=== PATIENT | female | born 1980 | race Two or more races ===

== ENCOUNTER 2019-01-19 19:04 | Emergency (ER) | payer SELFPAY ==
[2019-01-19] MEDS ORDERED: MECLIZINE HCL 25 MG TABLET PO ONE (20:02)
[2019-01-19] MEDS ORDERED: ONDANSETRON HCL INJ/PF 4 MG/2 ML SDV IV ONE (20:02)
[2019-01-19] MEDS ORDERED: NORMAL SALINE 1000 ML 1,000 ML IV ONE (20:02)
--- NOTE | 2019-01-19 20:04 | ER Document Report ---
ED Medical Screen (RME) - General Chief Complaint: Congestion Stated Complaint: CONGESTION,DIZZINESS,HEADACHE Time Seen by Provider: 01/19/19 19:56 Mode of Arrival: Ambulatory Information source: Patient Notes: Patient presents complaining of cough and congestion for the past 4 days. Patient states that she has had dizziness in which she is felt like she was going to pass out and some mild shortness of breath. Patient denies any pain or chest pain symptoms. Patient does report nausea. Patient denies any vomiting or diarrhea or fever. I have greeted and performed a rapid initial assessment of this patient. A comprehensive ED assessment and evaluation of the patient, analysis of test results and completion of the medical decision making process will be conducted by additional ED providers. TRAVEL OUTSIDE OF THE [place] IN LAST 30 DAYS: No - Related Data Allergies/Adverse Reactions: Shellfish * [Shellfish] Allergy (Verified 09/14/13 13:07) Past Medical History - Immunizations Hx Diphtheria, Pertussis, Tetanus Vaccination: No Physical Exam - Vital signs Vitals: Temp Pulse Resp BP Pulse Ox 98.6 F 71 16 111/76 96 01/19/19 19:29 01/19/19 19:29 01/19/19 19:29 01/19/19 19:29 01/19/19 19:29 - Respiratory Respiratory status: No respiratory distress Breath sounds: Nonproductive cough, Wheezing Chest palpation: Normal Course - Vital Signs Vital signs: Temp Pulse Resp BP Pulse Ox 98.6 F 71 16 111/76 96 01/19/19 19:29 01/19/19 19:29 01/19/19 19:29 01/19/19 19:29 01/19/19 19:29
--- NOTE | 2019-01-19 20:54 | RADIOLOGY REPORT (SQ) ---
EXAM DESCRIPTION: XR CHEST 2 VIEWS COMPLETED DATE/TME: 01/19/2019 20:02 CLINICAL HISTORY: cough COMPARISON: None FINDINGS: Cardiac silhouette is within normal limits. There is no focal parenchymal or pleural disease. There is no acute osseous process visualized. IMPRESSION: No evidence of acute cardiopulmonary disease.
[2019-01-19 21:03] LABS: ABSOLUTE EOSINOPHILS # (AUTO) 0.1 10^3/uL (0.0-0.6); ABSOLUTE LYMPHOCYTES (AUTO) 1.1 10^3/uL (0.5-4.7); ABSOLUTE MONOCYTES (AUTO) 0.4 10^3/uL (0.1-1.4); ABSOLUTE NEUT (AUTO) 1.3 10^3/uL (1.7-8.2); BASOPHILS % (AUTO) 0.8 % (0-2); EOSINOPHILS % (AUTO) 1.9 % (0-6); HEMATOCRIT 38.3 % (36.0-47.0); HEMOGLOBIN 13.2 g/dL (12.0-15.5); MEAN CORPUSCULAR HEMOGLOBIN 29.7 pg (27.0-33.4); MEAN CORPUSCULAR HGB CONC 34.4 g/dL (32.0-36.0); MEAN CORPUSCULAR VOLUME 86 fl (80-97); MONOCYTES % (AUTO) 14.6 % (3-13); PLATELET COUNT 234 10^3/uL (150-450); RED BLOOD COUNT 4.44 10^6/uL (3.72-5.28); RED CELL DISTRIBUTION WIDTH 12.9 % (11.5-14.0); SEGMENTED NEUTROPHILS % (AUTO) 44.7 % (42-78); TOTAL CELLS COUNTED % (AUTO) 100 %
[2019-01-19 21:14] LABS: ANION GAP 10 (5-19); BLOOD UREA NITROGEN 11 mg/dL (7-20); CARBON DIOXIDE 27 mmol/L (22-30); CHLORIDE 102 mmol/L (98-107); GLUCOSE 93 mg/dL (75-110); POTASSIUM 4.2 mmol/L (3.6-5.0); SODIUM 138.9 mmol/L (137-145)
--- NOTE | 2019-01-19 21:14 | ER Document Report ---
ED General - General Chief Complaint: Congestion Stated Complaint: CONGESTION,DIZZINESS,HEADACHE Time Seen by Provider: 01/19/19 19:56 Mode of Arrival: Ambulatory Notes: Patient presents complaining of cough and congestion for the past 4 days. Cough is persistent and dry. Patient states that she has had dizziness in which she is felt like she was going to pass out and some mild shortness of breath. Complains of chills and bodyaches, denies fever. Complains of sinus pressure and rhinorrhea. Patient denies any pain or chest pain symptoms. Patient does report nausea. Patient denies any vomiting or diarrhea. States may have sick contacts from work. Has tried Mucinex but only helped a little bit. TRAVEL OUTSIDE OF THE [place] IN LAST 30 DAYS: No - Related Data Allergies/Adverse Reactions: Shellfish * [Shellfish] Allergy (Verified 09/14/13 13:07) Past Medical History - General Information source: Patient - Social History Smoking Status: Never Smoker Chew tobacco use (# tins/day): No Frequency of alcohol use: None Drug Abuse: None Family History: Reviewed & Not Pertinent Patient has suicidal ideation: No Patient has homicidal ideation: No Renal/ Medical History: Denies: Hx Peritoneal Dialysis - Immunizations Hx Diphtheria, Pertussis, Tetanus Vaccination: No Review of Systems - Review of Systems Constitutional: See HPI EENT: See HPI Cardiovascular: See HPI Respiratory: See HPI Gastrointestinal: See HPI Genitourinary: No symptoms reported Female Genitourinary: No symptoms reported Musculoskeletal: No symptoms reported Skin: No symptoms reported Hematologic/Lymphatic: No symptoms reported Neurological/Psychological: No symptoms reported Physical Exam - Vital signs Vitals: Temp Pulse Resp BP Pulse Ox 98.6 F 71 16 111/76 96 01/19/19 19:29 01/19/19 19:29 01/19/19 19:29 01/19/19 19:29 01/19/19 19:29 - Notes Notes: PHYSICAL EXAMINATION: Reviewed vital signs and charting by RN GENERAL: Alert, interacts well. No acute distress. HEAD: Normocephalic, atraumatic. EYES: Pupils equal, round. Extraocular movements intact. ENT: Oral mucosa moist, tongue midline. NECK: Full range of motion. Supple. Trachea midline. LUNGS: Clear to auscultation bilaterally, no wheezes, rales, or rhonchi. No respiratory distress. constant cough HEART: Regular rate and rhythm. No murmur ABDOMEN: soft, non-tender. Non-distended. Bowel sounds present in all 4 quadrants. no McBurney's point tenderness, no Mondragon sign. EXTREMITIES: Moves all 4 extremities spontaneously. No edema, No cyanosis. PSYCH: Normal affect, normal mood. SKIN: Warm, dry, normal turgor. No rashes or lesions noted. Course - Re-evaluation Re-evalutation: 01/19/19 21:30 mildy leukopenic, chest x-ray without consolidation or infiltrate. No electrolyte derangements. urine pending. 01/19/19 22:51 Urine negative for UTI. Patient negative for influenza. Most likely represents a persistent upper respiratory viral infection. No cardiomegaly on chest x- ray. No hemoptysis. - Vital Signs Vital signs: Temp Pulse Resp BP Pulse Ox 98.6 F 71 16 111/76 96 01/19/19 19:29 01/19/19 19:29 01/19/19 19:29 01/19/19 19:29 01/19/19 19:29 - Laboratory Result Diagrams: 01/19/19 20:50 01/19/19 20:50 Laboratory results interpreted by me: 01/19/19 20:50 WBC 3.0 L Monocytes % 14.6 H Absolute Neutrophils 1.3 L Discharge - Discharge Clinical Impression: Upper respiratory infection Qualifiers: URI type: unspecified URI Qualified Code(s): J06.9 - Acute upper respiratory infection, unspecified Condition: Good Disposition: HOME, SELF-CARE Instructions: Viral Syndrome ([facility]), Upper Respiratory Illness ([facility]), Acetaminophen Additional Instructions: Your symptoms are most likely due to a viral infection it should resolve over the next 7-14 days. You should take [id number] guanfacine per bottle instructions to help thin the mucus. For nasal congestion: I would recommend that you get [id number] oxymetazoline also known is afrin. Use only per bottle instructions and be sure to never use this for more than 3 days if you can develop severe rebound congestion. You may also use tylenol or ibuprofen as needed for aches and thorat discomfort. Please be sure to drink plenty of fluids and get rest. Return to the emergency department he began having difficulty b reathing, chest pain, persistent vomiting, or any other symptoms that are concerning to you. Forms: Return to Work
[2019-01-19 21:26] LABS: APPEARANCE,URINE CLOUDY; BILIRUBIN,URINE NEGATIVE (NEGATIVE); COLOR,URINE YELLOW; GLUCOSE, URINE NEGATIVE (NEGATIVE); KETONES,URINE NEGATIVE (NEGATIVE); LEUKOCYTE ESTERASE,URINE NEGATIVE (NEGATIVE); NITRITE,URINE NEGATIVE (NEGATIVE); PROTEIN,URINE NEGATIVE (NEGATIVE); URINE SPECIFIC GRAVITY 1.009; UROBILINOGEN,URINE NEGATIVE mg/dL (<2.0)
[2019-01-19 21:47] LABS: A TYPE INFLUENZA AG NEGATIVE (NEGATIVE); B INFLUENZA AG NEGATIVE (NEGATIVE)
[2019-01-19] MEDS ORDERED: HYDROCODONE BIT/HOMATROPINE SYRUP 5 ML UDCUP PO ONE (22:59)
--- NOTE | 2019-01-19 23:49 | EKG REPORT ---
SEVERITY:- BORDERLINE ECG - SINUS RHYTHM INFERIOR Q WAVES, PROBABLY NORMAL VARIATION : Confirmed by: Nereida Knight 19-Jan-2019 23:48:27
[2019-01-20 00:07] VITALS: BP 113/66
== END 2019-01-19 23:10 | disposition home or self-care (01) ==
LOC: ER 19:04
DX: J06.9 Acute upper respiratory infection, unspecified (principal); R09.81 Nasal congestion; R42 Dizziness and giddiness; R51 Headache; R06.02 Shortness of breath; M79.10 Myalgia, unspecified site; J34.89 Other specified disorders of nose and nasal sinuses; R11.0 Nausea
CPT/HCPCS: 93005; 99284; 96361; 96374; 36415; 84703; 85025; 80048; 81001; 87804; 71046; 93010; J2405; J7030

== ENCOUNTER 2019-04-28 13:20 | Emergency (ER) | payer SELFPAY ==
[2019-04-28 13:28] VITALS: BP 121/69
--- NOTE | 2019-04-28 13:53 | ER Document Report ---
HPI - HPI Patient complains to provider of: Heat exhaustion Time Seen by Provider: 04/28/19 13:41 Onset: Just prior to arrival Onset/Duration: Sudden Pain Level: Denies Context: Patient presents emergency department with reports of possible heat exhaustion. Patient reports she was sitting at the bus stop for 15 minutes and her fingers went numb and her heart started pounding so she thought she might have it is heat exhaustion. Patient reports she is been drinking water. Denies vomiting fever diarrhea. Reports she has a history of heatstroke twice in her life. Associated Symptoms: None Exacerbated by: Denies Relieved by: Denies Similar symptoms previously: No Recently seen / treated by doctor: No - REPRODUCTIVE Reproductive: DENIES: : Past Medical History - General Information source: Patient - Social History Smoking Status: Unknown if Ever Smoked Cigarette use (# per day): No Frequency of alcohol use: None Drug Abuse: None Occupation: [employer] Family History: Reviewed & Not Pertinent Patient has suicidal ideation: No Patient has homicidal ideation: No - Medical History Medical History: Negative Renal/ Medical History: Denies: Hx Peritoneal Dialysis Surgical Hx: Negative - Immunizations Hx Diphtheria, Pertussis, Tetanus Vaccination: No Vertical Provider Document - CONSTITUTIONAL Agree With Documented VS: Yes Exam Limitations: No Limitations General Appearance: WD/WN, No Apparent Distress - INFECTION CONTROL TRAVEL OUTSIDE OF THE [place] IN LAST 30 DAYS: No - HEENT HEENT: Atraumatic, Normal ENT Exam, Normocephalic. negative: Conjuctival Injection, Pharyngeal Erythema, Tympanic Membrane Red - NECK Neck: Normal Inspection, Supple. negative: Lymphadenopathy-Left, Lymphadenopathy-Right - RESPIRATORY Respiratory: Breath Sounds Normal, No Respiratory Distress - CARDIOVASCULAR Cardiovascular: Regular Rate - GI/ABDOMEN Gastrointestinal: Abdomen Soft, Abdomen Non-Tender - MUSCULOSKELETAL/EXTREMETIES Musculoskeletal/Extremeties: PANKAJ CHAN - NEURO Level of Consciousness: Awake, Alert, Appropriate Motor/Sensory: No Motor Deficit - DERM Integumentary: Warm, Dry Course - Re-evaluation Re-evalutation: 04/28/19 13:57 Patient looks good nontoxic looking vital signs stable. Heat Exhaustion not suspected patient was instructed to ensure she is drinking enough fluids and follow-up with her primary care provider she verbalized understanding Dictation of this chart was performed using voice recognition software; therefore, there may be some unintended grammatical errors. - Vital Signs Vital signs: Temp Pulse Resp BP Pulse Ox 97.8 F 81 16 121/69 98 04/28/19 13:27 04/28/19 13:27 04/28/19 13:27 04/28/19 13:27 04/28/19 13:27 Discharge - Discharge Clinical Impression: exam for possible heat exhaustion Condition: Stable Disposition: HOME, SELF-CARE Additional Instructions: *You have been evaluated for exam for possible heat exhaustion *Ensure you drink plenty of fluids *Follow up with a primary care provider within 1 week *Return to ED for worsening condition, changes, needs *Return to ED if not better in 24 hours Forms: Return to Work
== END 2019-04-28 14:00 | disposition home or self-care (01) ==
LOC: ER 13:20
DX: T67.5XXA Heat exhaustion, unspecified, initial encounter (principal); X30.XXXA Exposure to excessive natural heat, initial encounter; Y92.89 Other specified places as the place of occurrence of the external cause
CPT/HCPCS: 99283